=== PATIENT | female | born 1995 ===

== ENCOUNTER 2019-04-16 19:49 | Emergency (ER) | payer SELFPAY ==
--- NOTE | 2019-04-16 19:51 | ER Report ---
History and Physical Time Seen By MD: 19:50 HPI/ROS CHIEF COMPLAINT: Nausea vomiting diarrhea and abdominal pain HISTORY OF PRESENT ILLNESS: Patient is an otherwise healthy 23-year-old female who presents emergency Department with nausea vomiting diarrhea and now abdominal pain. Patient states nausea vomiting and diarrhea started approximatel y 3 days ago. She is having a few loose stools per day. She is nauseous and has occasional vomiting. She is now having periumbilical abdominal pain with some migration to the left lower quadrant. She describes the pain as severe. States sitting reclined in the pain but standing worsens the pain. She states that the car ride over here is uncomfortable. As a dysuria or increased urinary frequency. She denies any vaginal discharge or bleeding. Her last menstrual period was described as normal in 1 week ago. She is not currently on any control pills. REVIEW OF SYSTEMS: ENT: Mild sore throat, no ear pain no nasal discharge Respiratory: No cough, no dyspnea. Cardiovascular: No chest pain, no palpitations. Gastrointestinal: Nausea vomiting and abdominal pain Musculoskeletal: No back pain. : Normal menses no vaginal discharge Allergies: Coded Allergies: No Known Drug Allergies (Unverified , 04/16/19) Home Meds Active Scripts Oxycodone Hcl/Acetaminophen (PERCOCET 5-325 MG TABLET) 1 Each Tablet, 1 EACH PO Q6H for PAIN, #8 TAB 0 Refills Prov:BILLIE TOURE MD 04/16/19 Ondansetron Hcl (ZOFRAN) 4 Mg Tablet, 4 MG PO Q8H for Nausea, #15 TAB 0 Refills Prov:BILLIE TOURE MD 04/16/19 Past Medical/Surgical History Noncontributory towards this chief complaint Constitutional Vital Sign - Last 24 Hours 04/16/19 04/16/19 04/16/19 04/16/19 19:56 19:59 20:19 20:30 Temp 98.3 Pulse 98 104 Resp 19 B/P (MAP) 124/95 124/95 (105) 116/96 (103) Pulse Ox 98 94 O2 Delivery Room Air 04/16/19 04/16/19 04/16/19 04/16/19 20:49 21:00 21:19 21:35 Pulse 94 93 B/P (MAP) 101/77 (85) 106/82 (90) Pulse Ox 94 93 04/16/19 04/16/19 04/16/19 04/16/19 21:40 21:55 22:00 22:10 Pulse 95 91 96 B/P (MAP) 103/78 (86) Pulse Ox 94 99 95 04/16/19 04/16/19 04/16/19 04/16/19 22:25 22:30 22:35 23:00 Pulse 97 ??? B/P (MAP) 110/81 (91) 122/85 (97) Pulse Ox 95 04/16/19 04/16/19 04/16/19 04/16/19 23:05 23:20 23:30 23:35 Pulse 84 80 90 B/P (MAP) 110/83 (92) Pulse Ox 95 97 94 04/16/19 04/17/19 04/17/19 04/17/19 23:50 00:00 00:05 00:11 Pulse 85 89 88 B/P (MAP) 105/74 (84) Pulse Ox 95 93 93 Intake and Output 04/16/19 04/16/19 04/17/19 15:00 23:00 07:00 Intake Total 2000 ml Balance 2000 ml Physical Exam General/Constitutional: Patient is awake, alert, nontoxic and in no acute respiratory distress. Head: Normocephalic and atraumatic. Eyes: Conjunctival clear, Sclera are clear and anicteric. Ears:External canals are clear. Tympanic membranes are clear with normal landmarks and light reflex. Nares: No rhinorrhea or bleeding. Turbinates are pink and moist. Oropharyngeal: Mucous membranes are moist. There is no pharyngeal erythema or exudate. There are no palatal petechiae. Uvula is midline and symmetrical. Neck: Supple, no adenopathy. Cardiovascular: Heart is regular rate and rhythm without audible murmurs, rubs o r gallops. Pulmonary: Lungs are clear to auscultation bilaterally. There are no wheezes, rales, or rhonchi. Chest rise is symmetrical Abdomen: Thin abdomen, normal to slightly decreased bowel sounds tenderness to percussion specifically over the left lower quadrant. No masses noted Extremities: No gross deformities, No peripheral cyanosis. Able to move all 4 extremities. Neuro: Alert and oriented X3, Skin: No rashes, skin is warm dry and well perfused. Medical Decision Making Data Points Result Diagram: 04/16/19202904/16/192029 Laboratory Hematology Test 04/16/19 20:30 04/16/19 21:35 Red Blood Count 4.95 M/uL (4.17-5.56) Mean Corpuscular Volume 90.9 fL (80.0-96.0) Mean Corpuscular Hemoglobin 31.4 pg (26.0-33.0) Mean Corpuscular Hemoglobin Concent 34.6 g/dL (32.0-36.0) Red Cell Distribution Width 12.4 % (11.5-14.5) Mean Platelet Volume 7.9 fL (7.2-11.1) Neutrophils (%) (Auto) 68.5 % (39.4-72.5) Lymphocytes (%) (Auto) 16.2 % (17.6-49.6) Monocytes (%) (Auto) 14.7 % (4.1-12.4) Eosinophils (%) (Auto) 0.2 % (0.4-6.7) Basophils (%) (Auto) 0.4 % (0.3-1.4) Nucleated RBC Relative Count (auto) 0.2 /100WBC Neutrophils # (Auto) 4.1 K/uL (2.0-7.4) Lymphocytes # (Auto) 1.0 K/uL (1.3-3.6) Monocytes # (Auto) 0.9 K/uL (0.3-1.0) Eosinophils # (Auto) 0.0 K/uL (0.0-0.5) Basophils # (Auto) 0.0 K/uL (0.0-0.1) Nucleated RBC Absolute Count (auto) 0.01 K/uL Sodium Level 135 mmol/L (137-145) Potassium Level 3.7 mmol/L (3.5-5.0) Chloride Level 102 mmol/L (98-107) Carbon Dioxide Level 23 mmol/L (22-31) Blood Urea Nitrogen 9 mg/dl (7-18) Creatinine 0.90 mg/dl (0.52-1.04) Glomerular Filtration Rate Calc > 60.0 Random Glucose 104 mg/dl (75-110) Calcium Level 9.7 mg/dl (8.4-10.2) Total Bilirubin 0.8 mg/dl (0.2-1.3) Aspartate Amino Transf (AST/SGOT) 24 U/L (0-35) Alanine Aminotransferase (ALT/SGPT) 27 U/L (0-56) Alkaline Phosphatase 60 U/L (0-126) Total Protein 7.7 g/dl (6.3-8.2) Albumin 4.6 g/dl (3.5-5.0) Lipase 43 U/L (23-300) Human Chorionic Gonadotropin, Qual Negative (NEGATIVE) Helicobacter pylori IgG Antibody Negative (NEGATIVE) Urine Color Straw Urine Clarity Clear Urine pH 6.0 pH (4.8-9.5) Urine Specific [place] 1.024 Urine Protein Negative mg/dL (NEGATIVE) Urine Glucose (UA) Negative mg/dL (NEGATIVE) Urine Ketones 20 mg/dL (NEGATIVE) Urine Blood Negative (NEGATIVE) Urine Nitrite Negative (NEGATIVE) Urine Bilirubin Negative (NEGATIVE) Urine Urobilinogen Negative mg/dL (0.2-1.9) Urine Leukocyte Esterase Negative (NEGATIVE) Urine RBC 1 /HPF (0-2/HPF) Urine WBC 1 /HPF (0-5/HPF) Urine Squamous Epithelial Cells Many /LPF (</=FEW) Urine Bacteria Few /HPF (NONE-FEW) Urine Mucus None /HPF (NONE-FEW) Chemistry Test 04/16/19 20:30 04/16/19 21:35 White Blood Count 6.0 k/uL (4.5-11.0) Red Blood Count 4.95 M/uL (4.17-5.56) Hemoglobin 15.6 g/dL (12.0-16.0) Hematocrit 45.0 % (34.0-47.0) Mean Corpuscular Volume 90.9 fL (80.0-96.0) Mean Corpuscular Hemoglobin 31.4 pg (26.0-33.0) Mean Corpuscular Hemoglobin Concent 34.6 g/dL (32.0-36.0) Red Cell Distribution Width 12.4 % (11.5-14.5) Platelet Count 191 K/uL (150-450) Mean Platelet Volume 7.9 fL (7.2-11.1) Neutrophils (%) (Auto) 68.5 % (39.4-72.5) Lymphocytes (%) (Auto) 16.2 % (17.6-49.6) Monocytes (%) (Auto) 14.7 % (4.1-12.4) Eosinophils (%) (Auto) 0.2 % (0.4-6.7) Basophils (%) (Auto) 0.4 % (0.3-1.4) Nucleated RBC Relative Count (auto) 0.2 /100WBC Neutrophils # (Auto) 4.1 K/uL (2.0-7.4) Lymphocytes # (Auto) 1.0 K/uL (1.3-3.6) Monocytes # (Auto) 0.9 K/uL (0.3-1.0) Eosinophils # (Auto) 0.0 K/uL (0.0-0.5) Basophils # (Auto) 0.0 K/uL (0.0-0.1) Nucleated RBC Absolute Count (auto) 0.01 K/uL Glomerular Filtration Rate Calc > 60.0 Calcium Level 9.7 mg/dl (8.4-10.2) Total Bilirubin 0.8 mg/dl (0.2-1.3) Aspartate Amino Transf (AST/SGOT) 24 U/L (0-35) Alanine Aminotransferase (ALT/SGPT) 27 U/L (0-56) Alkaline Phosphatase 60 U/L (0-126) Total Protein 7.7 g/dl (6.3-8.2) Albumin 4.6 g/dl (3.5-5.0) Lipase 43 U/L (23-300) Human Chorionic Gonadotropin, Qual Negative (NEGATIVE) Helicobacter pylori IgG Antibody Negative (NEGATIVE) Urine Color Straw Urine Clarity Clear Urine pH 6.0 pH (4.8-9.5) Urine Specific [place] 1.024 Urine Protein Negative mg/dL (NEGATIVE) Urine Glucose (UA) Negative mg/dL (NEGATIVE) Urine Ketones 20 mg/dL (NEGATIVE) Urine Blood Negative (NEGATIVE) Urine Nitrite Negative (NEGATIVE) Urine Bilirubin Negative (NEGATIVE) Urine Urobilinogen Negative mg/dL (0.2-1.9) Urine Leukocyte Esterase Negative (NEGATIVE) Urine RBC 1 /HPF (0-2/HPF) Urine WBC 1 /HPF (0-5/HPF) Urine Squamous Epithelial Cells Many /LPF (</=FEW) Urine Bacteria Few /HPF (NONE-FEW) Urine Mucus None /HPF (NONE-FEW) Urinalysis Test 04/16/19 21:35 Urine Color Straw Urine Clarity Clear Urine pH 6.0 pH (4.8-9.5) Urine Specific [place] 1.024 Urine Protein Negative mg/dL (NEGATIVE) Urine Glucose (UA) Negative mg/dL (NEGATIVE) Urine Ketones 20 mg/dL (NEGATIVE) Urine Blood Negative (NEGATIVE) Urine Nitrite Negative (NEGATIVE) Urine Bilirubin Negative (NEGATIVE) Urine Urobilinogen Negative mg/dL (0.2-1.9) Urine Leukocyte Esterase Negative (NEGATIVE) Urine RBC 1 /HPF (0-2/HPF) Urine WBC 1 /HPF (0-5/HPF) Urine Squamous Epithelial Cells Many /LPF (</=FEW) Urine Bacteria Few /HPF (NONE-FEW) Urine Mucus None /HPF (NONE-FEW) EKG/Imaging Imaging FACILITY: [facility] - [place] PATIENT NAME: Sade Diehl : 1995 MR: [id number] V: [id number] EXAM DATE: ORDERING PHYSICIAN: BILLIE TOURE TECHNOLOGIST: Location: [facility] - [place] Patient: Sade Diehl : 1995 Visit/Account:[id number] Date of Sevice: 04/16/2019 CT ABDOMEN PELVIS W/ CON Additional pertinent History: Left abdominal pain x3 days. Vomiting TECHNIQUE: Spiral scan was through the abdomen and pelvis during injection of nonionic iodinated intravenous contrast. Contrast: 75 mL of IV Isovue 320. COMPARISON STUDIES: none. One of the following dose optimization techniques was utilized in the performance of this exam: Automated exposure control; adjustment of the mA an d/or kV according to the patient's size; or use of an iterative reconstruction technique. Specific details can be referenced in the facility's radiology CT exam operational policy. FINDINGS: Liver / biliary: negative Pancreas: negative Spleen: Mild splenomegaly measuring up to 14.5 cm in AP dimension. Adrenal glands: negative Kidneys / retroperitoneum: There are bilateral renal cortical thinning and scarring changes in both kidneys with the left kidney being significantly smaller than the right measuring 6.9 x 3.5 cm versus 10.7 x 5.2 cm. There is a nonobstructing stone in the upper pole of the right kidney measuring 2 mm. No obvious renal obstructive uropathy change within either kidney. There are no stones along the expected course of either ureter. There are no stones within the bladder. Pelvic structures: Uterus and adnexal regions unremarkable. Similar sized and appearing ovaries bilaterally measuring 4 x 2 x 3 cm. Minimal amount of free fluid in the pelvis. Bowel / peritoneum / mesenteries: No obvious bowel inflammation. Appendix not definitively seen but no secondary signs of appendicitis in the cecal region. Vessels: negative Musculoskeletal / Body wall: negative Lymph node assessment: negative Lower chest: negative IMPRESSION: 1. Negative CT scan of the abdomen pelvis for acute pathology. 2. Splenomegaly. 3. Similar appearing ovaries bilaterally with no obvious evidence of ovarian torsion. Small amount of free fluid in the pelvis likely physiologic. 4. Atrophic appearing right kidney with bilateral renal scarring changes in both kidneys. Report Dictated By: Ventura Benson MD at 04/16/2019 9:45 PM Report E-Signed By: Ventura Benson MD at 04/16/2019 10:11 PM [id number] ED Course/Re-evaluation Clinical Indication for ER IV: Hydration, IV Access ED Course 04/16/2019 8:33:34 pm plan this time will be to perform abdominal workup. After history and physical exam was performed differential diagnosis was formulated which includes but is not limited to gastroenteritis, diverticulitis, appendicitis, gastritis, cholecystitis, biliary colic, H. pylori. We will place an IV draw abdominal labs, we will perform a contrast enhanced CT of the abdomen and pelvis. We will obtain test. We'll give IV fluids, IV Zofran and start with 50 mg of IV Toradol for pain. 04/16/2019 9:21:39 pm patient improved after Zofran and Toradol and 1 L fluid blood work is unremarkable awaiting results of CT of the abdomen and pelvis we'll give 2nd liter of IV. On attempt to obtain urinalysis for patient 04/17/2019 12:17:08 am so improved ultrasound negative will discharge home Decision to Disposition Date: April 17, 2019 Decision to Disposition Time: 00:16 Depart Departure Latest Vital Signs Vital Signs Date Time Temp Pulse Resp B/P (MAP) Pulse Ox O2 Delivery O2 Flow Rate FiO2 04/17/19 00:11 88 93 04/17/19 00:00 105/74 (84) 04/16/19 19:56 98.3 19 Room Air Impression: Primary Impression: Abdominal pain Condition: Improved Disposition: HOME OR SELF-CARE New Scripts Oxycodone Hcl/Acetaminophen (PERCOCET 5-325 MG TABLET) 1 Each Tablet 1 EACH PO Q6H for PAIN, #8 TAB 0 Refills Prov: BILLIE TOURE MD 04/16/19 Ondansetron Hcl (ZOFRAN) 4 Mg Tablet 4 MG PO Q8H for Nausea, #15 TAB 0 Refills Prov: BILLIE TOURE MD 04/16/19 Departure Forms: ER Transition Record, Medications Reconciliation, Off Work/School Form, School or Work Release?: Work Number of days to be released: 1 Patient Portal Information Patient Instructions: Abdominal Pain (ED) Problem Qualifiers Primary Impression: Abdominal pain Abdominal location: lower abdomen, unspecified Qualified Codes: R10.30 - Lower abdominal pain, unspecified BILLIE TOURE MD April 16, 2019 19:50
[2019-04-16] MEDS ORDERED: NS(*) 0.9% 1000 ML BAG 1,000 ML IV ONE ×2 (20:17→21:25)
[2019-04-16] MEDS ORDERED: KETOROLAC 30 MG/ML VIAL IVP ONE (20:20)
[2019-04-16] MEDS ORDERED: ONDANSETRON 4 MG/2 ML VIAL IVP ONE (20:20)
[2019-04-16] MEDS ORDERED: THIAMINE HCL 200 MG/2 ML INJ IVP ONE (20:30)
[2019-04-16 20:46] LABS: PLATELET COUNT, AUTOMATED 191 K/uL (150-450)
[2019-04-16] MEDS ORDERED: IOPAMIDOL 76% 100 ML INFUS BTL 100 ML ONE (22:00)
--- NOTE | 2019-04-16 22:15 | RADIOLOGY IMAGING REPORT ---
FACILITY: [facility] PATIENT NAME: Sade Diehl : 1995 MR: [id number] V: [id number] EXAM DATE: ORDERING PHYSICIAN: BILLIE TUORE TECHNOLOGIST: [place] [facility] [place]: Sade Diehl : 1995 Visit/Account:[id number] Date of Sevice: 04/16/2019 CT ABDOMEN PELVIS W/ CON Additional pertinent History: Left abdominal pain x3 days. Vomiting TECHNIQUE: Spiral scan was through the abdomen and pelvis during injection of nonionic iodinated in travenous contrast. Contrast: 75 mL of IV Isovue 320. COMPARISON STUDIES: none. One of the following dose optimization techniques was utilized in the performance of this exam: Autom ated exposure control; adjustment of the mA and/or kV according to the patient's size; or use of an i terative reconstruction technique. Specific details can be referenced in the facility's radiology C T exam operational policy. FINDINGS: Liver / biliary: negative Pancreas: negative Spleen: Mild splenomegaly measuring up to 14.5 cm in AP dimension. Adrenal glands: negative Kidneys / retroperitoneum: There are bilateral renal cortical thinning and scarring changes in both k idneys with the left kidney being significantly smaller than the right measuring 6.9 x 3.5 cm versus 10.7 x 5.2 cm. There is a nonobstructing stone in the upper pole of the right kidney measuring 2 mm. No obvious renal obstructive uropathy change within either kidney. There are no stones along the expe cted course of either ureter. There are no stones within the bladder. Pelvic structures: Uterus and adnexal regions unremarkable. Similar sized and appearing ovaries bi laterally measuring 4 x 2 x 3 cm. Minimal amount of free fluid in the pelvis. Bowel / peritoneum / mesenteries: No obvious bowel inflammation. Appendix not definitively seen but n o secondary signs of appendicitis in the cecal region. Vessels: negative Musculoskeletal / Body wall: negative Lymph node assessment: negative Lower chest: negative IMPRESSION: 1. Negative CT scan of the abdomen pelvis for acute pathology. 2. Splenomegaly. 3. Similar appearing ovaries bilaterally with no obvious evidence of ovarian torsion. Small amount of free fluid in the pelvis likely physiologic. 4. Atrophic appearing right kidney with bilateral renal scarring changes in both kidneys. Report Dictated By: Ventura Benson MD at 04/16/2019 9:45 PM Report E-Signed By: Ventura Benson MD at 04/16/2019 10:11 PM WSN:[id number]
[2019-04-16] MEDS ORDERED: KETOROLAC 15 MG/ML VIAL IVP ONE (23:25)
[2019-04-16] MEDS ORDERED: OXYC-865 PO (23:27)
[2019-04-16] MEDS ORDERED: ONDA4TAB97 PO (23:27)
--- NOTE | 2019-04-16 23:49 | RADIOLOGY IMAGING REPORT ---
FACILITY: [facility] - [place] PATIENT NAME: Sade Diehl : 1995 MR: [id number] V: [id number] EXAM DATE: ORDERING PHYSICIAN: BILLIE TOURE TECHNOLOGIST: Location: [facility] - [place] Patient: Sade Diehl : 1995 Visit/Account:[id number] Date of Sevice: 04/16/2019 EXAMINATION: TRANSABDOMINAL AND ENDOVAGINAL PELVIC ULTRASOUND WITH DOPPLER DATE: 04/16/2019 10:02 PM INDICATION: Possible abnormal ovaries on prior CT. TECHNIQUE: Transabdominal and endovaginal leyva scale, color, and pulsed Doppler ultrasound examinati on of the pelvis was performed. COMPARISON: Same day CT abdomen and pelvis. FINDINGS: The uterus is anteverted and anteflexed and measures 7.5 x 3.0 x 4.6 cm. There is no definite focal l esion in the myometrium. The endometrial stripe measures 5 mm in AP thickness, which is within normal limits. The right ovary measures 4.2 x 2.7 x 2.4 cm and contains physiologic follicles and has venous and art erial waveforms on pulsed Doppler. The left ovary measures 4.4 x 4.3 x 2.1 cm and contains physiologi c follicles and has venous and arterial waveforms on pulsed Doppler. Trace free fluid in the pelvic cavity is within physiologic limits. IMPRESSION: Normal pelvic ultrasound. Report Dictated By: Catrachito Rehman MD at 04/16/2019 11:39 PM Report E-Signed By: Catrachito Rehman MD at 04/16/2019 11:45 PM WSN:[id number]
[2019-04-17] VITALS: BP 105/74
== END 2019-04-17 00:22 | disposition home or self-care (01) ==
LOC: ER 20:13
DX: R10.30 Lower abdominal pain, unspecified (principal)
CPT/HCPCS: 74177; 76856; 81001; 83690; 84703; 85025; 86677; 96361; 96374; 96375; 96376; 99284; J1885; J2405; J7030; Q9967; 82040; 82247; 82310; 82374; 82435; 82565; 82947; 84075; 84132; 84155; 84295; 84450; 84460; 84520